=== PATIENT | female | born 1995 | race Two or more races ===

== ENCOUNTER 2023-03-29 18:11 | Emergency (ER) | payer MEDICAID ==
[~2023-03-29] VITALS: Ht 104.1 cm; Wt 68.1 kg
[2023-03-29] MEDS ORDERED: ACET500T58 PO (23:40)
[2023-03-29] MEDS ORDERED: CEPH500C PO (23:40)
[2023-03-29] MEDS ORDERED: TETANUS-DIPTH-ACEL PERTUSSIS 0.5ML SYR Tdap IM ONE (23:45)
[2023-03-30 00:16] VITALS: BP 119/78; PULSE 78; RESP 18; TEMP 98; O2SAT 100
== END 2023-03-30 00:22 | disposition home or self-care (01) ==
LOC: ER 18:11
DX: S61.412A Laceration without foreign body of left hand, initial encounter (principal); Z98.890 Other specified postprocedural states; Z79.899 Other long term (current) drug therapy; W45.8XXA Other foreign body or object entering through skin, initial encounter; Y93.89 Activity, other specified; Y92.89 Other specified places as the place of occurrence of the external cause; Y99.8 Other external cause status
CPT/HCPCS: 12002; 90471; 90715